=== PATIENT | male | born 1980 | race African-American/Black ===

== ENCOUNTER 2020-11-07 12:22 | Emergency (ER) | payer SELFPAY ==
[2020-11-07 12:29] VITALS: BP 170/126; PULSE 90; RESP 15; TEMP 36.6; O2SAT 100
--- NOTE | 2020-11-07 12:40 | ED.GENADULT ---
HPI - General Adult General Chief complaint: Unspecified Stated complaint: Cough Time Seen by Provider: 11/07/20 12:26 Source: patient Mode of arrival: ambulatory Limitations: no limitations History of Present Illness HPI narrative: Patient is a 40 year old male who presents with request for prescription refill. Patient reports he resides in [place]. 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 He reports he expects to be in [place] for the next 6 plus months. Patient reports calling his PCP in [place] who could not prescribe his predinsone or tussinex because of state restrictions. PCP told patient to go to for refill of meds. Patient reports cough x 2-3 weeks. Reports using inhalers and duoneb at home with limited relief. Patient also appears hypertensive in ED but reports no history of hypertension. He denies taking blood pressure medications. Discussed with patient that blood pressure is very elevated at this time. Patient does reports he is currently under much stress. Patient declines all testing and xrays and reports he would just like prescription refill and primary care referral. Patient reports a history of COPD and Asthma. Patient denies other complaints at this time. MD complaint: Medication refill Related Data Allergies Allergy/AdvReac Type Severity Reaction Status Date / Time No Known Allergies Allergy Verified 11/07/20 13:11 Review of Systems Review of Systems: Narrative: CONSTITUTIONAL: Denies fever, chills, or sweats. EYES: Denies visual changes, redness, or discharge. ENT: Denies rhinorrhea, congestion, sore throat, or otalgia. CARDIOVASCULAR: Denies chest pain, palpitations, or edema. RESPIRATORY: Reports cough and dyspnea. GASTROINTESTINAL: Denies abdominal pain, nausea, vomiting, or diarrhea. GENITOURINARY: Denies dysuria or hematuria. SKIN: Denies rash or itching. MUSCULOSKELETAL: Denies back pain, joint pain, or myalgia. NEUROLOGIC: Denies headache, numbness, dizziness, or weakness. PSYCHIATRIC: Denies anxiety or depression. [facility] Past Medical History Medical History (Updated 11/07/20 @ 13:11 by ERICK Daley) Asthma COPD (chronic obstructive pulmonary disease) Surgical History Surgical History (Updated 11/07/20 @ 13:02 by ERICK Daley) No significant past surgical history Family History Family History (Updated 11/07/20 @ 13:02 by ERICK Daley) Other Patient declines information Social History Social History (Updated 11/07/20 @ 13:03 by ERICK Daley) Smoking status: Never smoker Alcohol intake: current Alcohol use details: occasional Substance use: never Living arrangements: with family Exam Narrative: Exam Narrative: GENERAL: Well-appearing, well-nourished, and in no acute distress. HEAD: Normocephalic, atraumatic. EYES: EOMI. No redness or drainage. Conjunctiva are normal. ENT: Mucous membranes pink and moist. CHEST: No respiratory distress. Expiratory wheezes upon auscultation, tightness HEART: Regular rate and rhythm. No murmur appreciated. Normal peripheral pulses. GI: Soft, nontender without rebound, or guarding. No distention. Bowel sounds normal in all quadrants. MUSCULOSKELETAL: No bony tenderness. EXTREMITIES: Normal range of motion. No edema. SKIN: Warm, dry, no rash. NEURO: No focal deficits. Alert and oriented x3. Gait steady. PSYCH: Normal affect. No signs of depression or anxiety. Course Course Emergency Course: Discussed with patient request a refill prednisone and Tussionex as his PCP recommends. Discussed with patient current hypertension and starting blood pressure medication as well as PCP referral since he will be living in the area for 6+ months. Patient agrees. Discussed with patient the need for a blood pressure recheck in 1 to 2 weeks, as well as follow-up with PCP. Albuterol inhaler refilled as well. Vital Signs Vital signs: Vital
--- NOTE | 2020-11-07 13:42 | PC.NURSE ---
Pt refusing chest xray and other lab work. States he just need hydrocodone cough syrup. He states his local doctor in [place] will prescribe it to him but cant since he is out of state. Pt given prescription for guifenison and a local doctor to follow up with. Refused vital signs and to sign discharge paperwork.
== END 2020-11-07 13:46 | disposition home or self-care (01) ==
PROVIDERS: Emergency Provider Nurse Practitioner
DX: J44.1 Chronic obstructive pulmonary disease with (acute) exacerbation (principal); I10 Essential (primary) hypertension
CPT/HCPCS: 99283